=== PATIENT | male | born 1995 | race Caucasian/White ===

== ENCOUNTER → 2023-01-24 | Outpatient (REF) | payer BC, OTHER | LOC: M SFHCWAGY 13:28 | PROVIDERS: ATTEND Urology | DX: Z30.2 Encounter for sterilization (principal) ==

== ENCOUNTER → 2023-04-10 | Outpatient (REF) | payer OTHER ==
[2023-04-10 14:31] LABS: SEMEN APPEARANCE OPAQUE (OPAQUE); SEMEN VISCOSITY LIQUID (LIQUID); SEMEN VOLUME 1.6 ml (2.0-5.0); WBC CONCENTRATION <=1 M/ml (<=1 M/ml)
== END ==
LOC: M SMT 14:10
PROVIDERS: ATTEND Urology
DX: Z30.8 Encounter for other contraceptive management (principal)